=== PATIENT | male | born 1985 | race Caucasian/White ===

== ENCOUNTER 2017-06-19 14:50 | Emergency (ER) | payer MEDICAID ==
[~2017-06-19] VITALS: Ht 190.5 cm; Wt 203.7 kg
[2017-06-19 15:00] VITALS: BP 151/95
[2017-06-19 15:13] VITALS: BP 151/95
== END 2017-06-19 15:13 | disposition home or self-care (01) ==
LOC: MED 14:50
DX: S02.5XXA Fracture of tooth (traumatic), initial encounter for closed fracture (principal); X58.XXXA Exposure to other specified factors, initial encounter; Y93.89 Activity, other specified; Y92.89 Other specified places as the place of occurrence of the external cause; Y99.8 Other external cause status
CPT/HCPCS: 99283